=== PATIENT | male | born 1990 | race Caucasian/White ===

== ENCOUNTER 2024-08-02 00:07 | Emergency (ER) | payer SELFPAY ==
--- NOTE | ~2024-08-02 | CT_ITS ---
Non-contrast Head CT History: Head trauma Technique: Axial non-contrast imaging of the brain was performed. Dose reduction technique was used on this scan by utilizing automated exposure control and iterative reconstruction technique. The dose -length product (DLP) was 681.00 mGy-cm. Findings: There is no evidence of intracranial hemorrhage, mass lesion, or acute infarct. Brain par enchyma appears normal. The ventricles and subarachnoid spaces are normal in size. The calvarium ap pears normal. The visualized paranasal sinuses and mastoid air cells are clear. There is prominent s oft tissue swelling/hematoma at the left posterior scalp. Impression: No intracranial abnormality seen. Prominent soft tissue/hematoma at the posterior left scalp. Reviewed, dictated and finalized at location . Impression: No intracranial abnormality seen. Prominent soft tissue/hematoma at the posterior left scalp.
--- NOTE | ~2024-08-02 | CT_ITS ---
Noncontrast CT scan of the cervical spine Technique: Multiple contiguous axial [address] images of the cervical spine were obtained and rec onstructed in 2D sagittal and coronal planes on the acquisition scanner. Dose reduction technique was used on this scan by utilizing automated exposure control, adjustment of the mA and/or kV according to patient size. The dose-length product (DLP) was 527.82 mGy-cm. Clinical History: Pain Findings: No fractures or dislocations. There is straightening of the normal cervical lordosis. The intervertebral disc spaces are preserved. No prevertebral soft tissue swelling. Impression: No fracture or subluxation of the cervical spine. Reviewed, dictated and finalized at location . Impression: No fracture or subluxation of the cervical spine.
[2024-08-02 00:38] VITALS: BP 146/85; PULSE 94; RESP 18; TEMP 36.8; O2SAT 97
[2024-08-02] MEDS: TETANUS,DIPHTHERIA,AC PERTUSSIS ADULT (0.5 ML) BOOSTRIX IM (01:05)
[2024-08-02 01:08] LABS: Basophils Percent Auto 0.2 % (0.2-1.2); Eosinophils Percent Auto 0.2 % (0-4.4); Hematocrit 38.1 % (42.0-52.0); Hemoglobin 12.6 g/dL (14.0-18.0); Immature Granulocyte Absolute 0.04 K/mm3 (0.00-0.031); Immature Granulocyte Percent A 0.4 % (0-0.5); Lymphocytes Absolute Auto 2.57 K/mm3 (0.9-3.2); Lymphocytes Percent Auto 24.3 % (18.3-44.2); Mean Corpuscular HGB Conc 33.1 g/dl (32-36); Mean Corpuscular Hemoglobin 27.6 pg (26-34); Mean Corpuscular Volume 83.4 fl (80-100); Mean Platelet Volume 10.5 fl (7.4-10.4); Monocytes Absolute Auto 0.7 K/mm3 (0.1-0.6); Monocytes Percent Auto 6.3 % (2.6-8.5); Neutrophils Absolute Auto 7.3 K/mm3 (1.3-6.7); Neutrophils Percent Auto 68.6 % (45.5-73.1); Platelet Count Result 256 k/mm3 (150-375); Red Blood Count 4.57 M/mm3 (4.6-6.20); Red Cell Distribution Width 14.2 % (11.5-14.5); White Blood Count 10.6 K/mm3 (4.5-10.0)
[2024-08-02] MEDS: ceFAZolin 2 GM/D5W 50 ML 2 GM/50 ML BAG IVPB (01:15)
[2024-08-02 01:17] LABS: Ethanol 209 mg/dL (<10)
[2024-08-02 01:18] LABS: Alanine Aminotransferase 27 U/L (6-50); Albumin Level 4.1 g/dL (3.5-5.1); Alkaline Phosphatase 99 U/L (38-126); Anion Gap 13 mmol/L (4-12); Aspartate Amino Transferase 29 U/L (17-59); Bilirubin,Total 0.3 mg/dL (0.2-1.3); Blood Urea Nitrogen 7 mg/dL (9-20); Calcium 8.4 mg/dL (8.4-10.2); Carbon Dioxide 23 mmol/L (22-30); Chloride 104 mmol/L (98-107); Estimated CRCL calculation 200 ml/min; Estimated Glomerular Filt Rate > 60; Glucose 107 mg/dL (65-110); Potassium 3.7 mmol/L (3.4-5.0); Sodium 140 mmol/L (137-145)
--- NOTE | 2024-08-02 02:22 | ED.GENADULT ---
HPI - General Adult General Chief complaint: Head Injury Stated complaint: head injury, active bleeding, trauma Time Seen by Provider: 08/02/24 00:16 History of Present Illness HPI narrative: Patient is a 34-year-old gentleman presents emergency department with chief complaint of head injury. The patient reports he was drinking fell backwards and struck his head the patient reports was a large laceration on the back of his head that was actively bleeding Related Data Allergies Allergy/AdvReac Type Severity Reaction Status Date / Time No Known Allergies Allergy Verified 08/02/24 00:54 Review of Systems Review of Systems: A 10 system review of systems was completed on the patient and is negative except for what is stated in the HPI. Nursing and ancillary documentation was reviewed. Exam Narrative: GENERAL: Well-appearing, well-nourished, and in no acute distress. HEAD: Normocephalic, 6 cm laceration to the occipital region of the scalp actively bleeding. EYES: PERRLA and EOMI. ENT: Nares clear, no rhinorrhea or epistaxis. Mucous membranes moist. NECK: Supple. CHEST: Clear to auscultation. No respiratory distress. HEART: Regular rate and rhythm. No murmur heard. Normal peripheral pulses. ABDOMEN: Soft, nontender, nondistended, normal active bowel sounds. EXTREMITIES: Normal range of motion. No edema. SKIN: Warm, dry, no rash. NEURO: No focal deficits. Alert and oriented x3. PSYCH: Normal mood and affect. Course Vital Signs Vital signs: Vital Signs Temperature 36.8 C 08/02/24 00:38 Pulse Rate 94 08/02/24 00:38 Respiratory Rate 18 08/02/24 00:38 Blood Pressure 146/85 H 08/02/24 00:38 Pulse Oximetry 97 08/02/24 00:38 Oxygen Delivery Room Air 08/02/24 00:38 Temperature 36.8 C 08/02/24 00:38 Pulse Rate 94 08/02/24 00:38 Respiratory Rate 18 08/02/24 00:38 Blood Pressure 146/85 H 08/02/24 00:38 Pulse Oximetry 97 08/02/24 00:38 Oxygen Delivery Room Air 08/02/24 00:38 Procedures Laceration Laceration 1: Date: 08/02/24 Time: 00:38 Site: scalp Size (cm): 6 Description: linear Depth: simple, single layer Local Anesthetic: none Pre-repair: wound explored and irrigated ====== Skin Level ====== Skin layer closed with: naty Number of sutures: 12 ====== Subcutaneous Layer ====== ====== Muscle Layer ====== ====== Tendon Layer ====== Medical Decision Making MDM Narrative Medical decision making narrative: Differential diagnosis includes head injury, intracranial hemorrhage, cervical fracture. CT head showed no evidence of acute intracranial pathology there was a hematoma present CT C-spine showed no evidence of fracture Vital Signs Vital Signs: Vital Signs Temperature 36.8 C 08/02/24 00:38 Pulse Rate 94 08/02/24 00:38 Respiratory Rate 18 08/02/24 00:38 Blood Pressure 146/85 H 08/02/24 00:38 Pulse Oximetry 97 08/02/24 00:38 Oxygen Delivery Room Air 08/02/24 00:38 Temperature 36.8 C 08/02/24 00:38 Pulse Rate 94 08/02/24 00:38 Respiratory Rate 18 08/02/24 00:38 Blood Pressure 146/85 H 08/02/24 00:38 Pulse Oximetry 97 08/02/24 00:38 Oxygen Delivery Room Air 08/02/24 00:38 Lab Data 08/02/24 01:02 08/02/24 01:02 Labs: Lab Results 08/02/24 Range/Units 01:02 WBC 10.6 H (4.5-10.0) K/mm3 RBC 4.57 L (4.6-6.20) M/mm3 Hgb 12.6 L (14.0-18.0) g/dL Hct 38.1 L (42.0-52.0) % MCV 83.4 (80-100) fl MCH 27.6 (26-34) pg MCHC 33.1 (32-36) g/dl RDW 14.2 (11.5-14.5) % Plt Count 256 (150-375) k/mm3 MPV 10.5 H (7.4-10.4) fl Immature Gran % (Auto) 0.4 (0-0.5) % Neut % (Auto) 68.6 (45.5-73.1) % Lymph % (Auto) 24.3 (18.3-44.2) % [place] % (Auto) 6.3 (2.6-8.5) % Eos % (Auto) 0.2 (0-4.4) % Baso % (Auto) 0.2 (0.2-1.2) % Lymph # (Auto) 2.57 (0.9-3.2
== END 2024-08-02 02:37 | disposition home or self-care (01) ==
PROVIDERS: Emergency Provider Emergency Medicine
DX: S01.01XA Laceration without foreign body of scalp, initial encounter (principal); S09.90XA Unspecified injury of head, initial encounter; W18.39XA Other fall on same level, initial encounter; Z23 Encounter for immunization
CPT/HCPCS: 12002; 36415; 70450; 72125; 80053; 80307; 85025; 90471; 90715; 96365; 99284; J0690